=== PATIENT | female | born 1945 | race Hispanic/Latino ===

== ENCOUNTER 2019-01-09 01:59 | Inpatient (IN) | payer MEDICARE ==
[2019-01-09 03:20] LABS: Basophils % (Auto) 0.5 % (0.0-1.8); Eosinophils # (Auto) 0.1 K/mm3 (0.0-0.4); Eosinophils % (Auto) 1.2 % (0.0-4.3); Hematocrit 33.6 % (30.3-42.9); Hemoglobin 11.6 gm/dl (10.1-14.3); Lymphocytes # (Auto) 1.6 K/mm3 (1.2-5.4); Lymphocytes % (Auto) 26.4 % (13.4-35.0); Mean Corpuscular HGB Conc 35 % (30-34); Mean Corpuscular Volume 94 fl (79-97); Monocytes # (Auto) 0.7 K/mm3 (0.0-0.8); Monocytes % (Auto) 10.8 % (0.0-7.3); Platelet Count 267 K/mm3 (140-440); Red Blood Count 3.56 M/mm3 (3.65-5.03); Red Cell Distribution Width 14.1 % (13.2-15.2)
[2019-01-09 03:23] LABS: Bacteria,Urine 1+ /HPF (Negative); Bilirubin,Urine NEG (Negative); Blood,Urine MOD (Negative); Color,Urine Yellow (Yellow); Protein,Urine <15 mg/dL mg/dL (Negative); Urobilinogen,Urine < 2.0 mg/dL (<2.0)
[2019-01-09 03:38] LABS: Alanine Aminotransferase 9 units/L (7-56); Albumin 3.5 g/dL (3.9-5); BUN/Creatinine Ratio 19; Blood Urea Nitrogen 13 mg/dL (7-17); Calcium 8.9 mg/dL (8.4-10.2); Hemolysis Index 11
[2019-01-09] MEDS ORDERED: ROCEPHIN/NS 1 GM/50 ML 1 GM/50 ML BAG IV ONE (03:42)
--- NOTE | 2019-01-09 04:27 | Cat Scan Report ---
PROCEDURE: CT HEAD/BRAIN WO CON TECHNIQUE: Computerized tomography of the head was performed without contrast material. CT DOSE LENGTH PRODUCT: mGycm HISTORY: AMS COMPARISONS: None . FINDINGS: Skull and scalp: Normal . Paranasal sinuses: Normal . Ventricles and subarachnoid spaces: There is mild central and cortical atrophy. There is no hydrocep halus or asymmetry. . Cerebrum: No evidence of hemorrhage, acute infarction or mass . Cerebellum and brainstem: No evidence of hemorrhage, acute infarction or mass . Vasculature: There is calcified plaque in the cavernous portions of the internal carotid arteries. . IMPRESSION: There is no acute intracranial abnormality. . This document is electronically signed by Alireza Amaya MD., January 09 2019 04:25:15 AM ET
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
[2019-01-09] MEDS ORDERED: HALDOL IM PRN (11:22)
[2019-01-10] MEDS: ROCEPHIN/NS 1 GM/50 ML 1 GM/50 ML BAG IV SCH ×2 (10:27→10:56)
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
[2019-01-10 22:55] LABS: Amphetamine Screen,Urine PRESUMPTIVE NEGATIVE; Benzodiazepines Screen,Urine PRESUMPTIVE NEGATIVE; Cannabinoid Screen,Urine PRESUMPTIVE NEGATIVE; Cocaine Screen,Urine PRESUMPTIVE NEGATIVE; Methadone Screen,Urine PRESUMPTIVE NEGATIVE; Opiate Screen,Urine PRESUMPTIVE NEGATIVE
[2019-01-11] MEDS: ROCEPHIN/NS 1 GM/50 ML 1 GM/50 ML BAG IV SCH (09:50)
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
--- NOTE | 2019-01-12 11:06 | Progress Note ---
Subjective - Reason for Consult Consult date: 01/12/19 Reason for consult: Psychiatry Follow-up - Chief Complaint Chief complaint: "The voices" 73 y.o. white female who presented to the ER understand strange circumstances. Today the patient is calm during the assessment. She stated that voices are active at this time. She could not state what the voices are saying. She is adamant that her spouse has several names. She denies SI/HI's and AVh's. No rere cations of side effects of her medication. Mental Status Exam - Vital signs Last Vital Signs Temp 97.2 F L 01/12/19 07:37 Pulse 55 L 01/12/19 07:37 Resp 20 01/12/19 07:37 BP 118/63 01/12/19 07:37 Pulse Ox 100 01/12/19 07:37 - Exam Narrative exam: MSE: Appearance: calm Behavior: regular eye contact Speech: regular rate and tone Mood: somewhat preoccupied Affect: flat Thought Process: circumstantial Thought Content: denies SI/HI's and VH's, delusional Motor Activity: sitting up in bed Cognition: A/O x 3 Insight: poor Judgment: poor Assessment and Plan Impression: Unspecified Psychosis. R/O Delirium. The patient is calm during the assessment. The patient is experiencing AH's. Medical: UTI DDx: Bipolar DO with psychosis recommendation/Plan: Continue 1013 and Zyorexa 5 mg PO HS for psychosis. Discussed possible metabolic side effects of Zyprexa with the patient, she verbalized understanding. Recommend Delirium precautions below: 1. Frequently reorient patient and involve him/her in their care (simple explanations of procedures, tests, medications). 2. Lights on and shades open during daytime hours. 3. Write date and goals of care in a visible place. 4. Try to avoid unnecessary interruptions to sleep during nighttime hours. 5. Obtain glasses, hearing aids from home if patient uses these at baseline. 6. Avoid medications that may exacerbate delirium (especially narcotics, benzodiazepines, barbiturates, ambien, lunesta, and medications with excessive anticholinergic properties). Dipso: The patient was referred to inpatient psy services. Will staff with Dr Mamadou Lyons.
[2019-01-12] MEDS ORDERED: LEVAQUIN PO SCH (12:30)
[2019-01-12 13:59] VITALS: BP 128/77
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
== END 2019-01-12 17:14 | DRG 71 ==
LOC: ED 01:59 → EEVIPCON 05:58 → 2B-ACE 05:58
PROVIDERS: ADMIT Internal Medicine; ATTEND Internal Medicine
DX: G93.49 Other encephalopathy (principal); N30.00 Acute cystitis without hematuria; F31.9 Bipolar disorder, unspecified; F20.9 Schizophrenia, unspecified; Z60.2 Problems related to living alone; Z90.49 Acquired absence of other specified parts of digestive tract; Z90.710 Acquired absence of both cervix and uterus; Z87.891 Personal history of nicotine dependence; Z82.49 Family history of ischemic heart disease and other diseases of the circulatory system; Z83.3 Family history of diabetes mellitus
CPT/HCPCS: 36415; 70450; 80053; 80307; 80320; 81001; 82140; 82607; 82747; 84439; 84443; 84484; 85025; 87086; 93005; 93010; 96365; G0378; G0480; J0696